=== PATIENT | female | born 1990 | race Caucasian/White ===

== ENCOUNTER 2022-01-21 08:02 | Emergency (ER) | payer OTHER ==
[~2022-01-21] VITALS: Ht 180.3 cm; Wt 60.3 kg
== END 2022-01-21 10:25 | disposition home or self-care (01) ==
LOC: ER 08:02
DX: J06.9 Acute upper respiratory infection, unspecified (principal); Z91.040 Latex allergy status; Z20.822 Contact with and (suspected) exposure to COVID-19

== ENCOUNTER 2024-09-16 16:40 | Emergency (ER) | payer OTHER ==
[~2024-09-16] VITALS: Ht 152.4 cm; Wt 66.7 kg
[2024-09-16] MEDS ORDERED: VALACYCLOVIR1000 MG PO (18:48)
== END 2024-09-16 18:55 | disposition home or self-care (01) ==
LOC: ER 16:40
DX: B02.9 Zoster without complications (principal); Z91.040 Latex allergy status

== ENCOUNTER 2024-12-06 10:55 | Emergency (ER) | payer OTHER ==
[~2024-12-06] VITALS: Ht 162.6 cm; Wt 64.4 kg
[~2024-12-06 10:55] MED LIST: VALACYCLOVIR1000 MG PO
[2024-12-06 10:58] VITALS: BP 119/78; O2SAT 99
[2024-12-06] MEDS ORDERED: 0.9 % SODIUM CHLORIDE 1,000 ML IV SCH (11:15)
[2024-12-06] MEDS ORDERED: FAMOtidine 10 MG/ML (4ML VIAL) IV ONE (11:15)
[2024-12-06] MEDS ORDERED: METOCLOPRAMIDE HCL 5 MG/ML VIAL ONE (11:18)
[2024-12-06] MEDS ORDERED: FAMOTIDINE/PF 20 MG/2 ML VIAL ONE (11:19)
[2024-12-06] MEDS ORDERED: HYOSCYAMINE SULFATE 0.125 MG TAB.SUBL SL ONE (11:30)
[2024-12-06] MEDS ORDERED: METOCLOPRAMIDE HCL 5 MG/ML VIAL IV ONE (11:30)
[2024-12-06] MEDS ORDERED: HYOSCYAMINE SULFATE 0.125 MG TAB.SUBL ONE (11:42)
[2024-12-06 11:43] LABS: BASO % 0.2 % (0.1-1.2); EOS # 0.03 (0.04-0.54); EOS % 0.6 % (0.7-7.0); LYMPH # 1.60 (1.18-3.74); LYMPH % 34.4 % (19.3-53.1); MEAN PLATELET VOLUME 10.50 fl (9.4-12.4); MONO # 0.30 (0.24-0.82); MONO % 6.5 % (4.7-12.5); NEUT # 2.70 (1.56-6.13); NEUT % 58.1 % (34.0-71.1); RED CELL DISTRIBUTION WIDTH 12.1 % (11.6-14.4)
[2024-12-06 12:23] LABS: ALT/SGPT 20.0 U/L (12-78); AST/SGOT 14.0 U/L (15-37); BILIRUBIN TOTAL 0.78 mg/dL (0.3-1.2); BILIRUBIN,CONJUGATED 0.19 mg/dL (0.0-0.2); BUN CREA RATIO 14.0 (7.0-25.0); CREATININE SERUM 0.73 mg/dL (0.55-1.02); GFR 92.39; GLUCOSE FASTING 93.0 mg/dL (65-100); OSMOLALITY SERUM 287.0 MOSM/KG (275-295)
[2024-12-06 14:24] LABS: URINE APPEARANCE Clear; URINE BILIRRUBIN Negative (NEGATIVE); URINE BLOOD Trace; URINE COLOR Dark Yellow; URINE GLUCOSE Negative (NEGATIVE); URINE LEUKOCYTE Trace; URINE NITRATE Negative; URINE PROTEIN 30 (NEGATIVE); URINE UROBILINOGEN 1.0 E.U./dl
[2024-12-06 14:25] LABS: URINE BACTERIA 31.1 uL (0.0-1933); URINE EPITHELIAL CELLS 46.4 uL (0.0-38.8); URINE RBC 78.9 uL (0.0-20.8); URINE WBC 8.6 uL (0.0-23.2)
[2024-12-06 14:50] LABS: TYPE CELLS SQUAMOUS; URINE CAST 0.43 uL (0.0-1.40); URINE KETONE 80 (NEGATIVE); URINE MUCUS SCANT; URINE YEAST FEW /hpf
== END 2024-12-06 19:49 | disposition home or self-care (01) ==
LOC: ER 10:55
PROVIDERS: General Practice
DX: K52.89 Other specified noninfective gastroenteritis and colitis (principal); Z91.040 Latex allergy status